=== PATIENT | male | born 1960 | race Caucasian/White ===

== ENCOUNTER 2020-03-09 11:19 | Emergency (ER) | payer OTHER ==
[~2020-03-09] VITALS: Ht 177.8 cm; Wt 77.2 kg
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
[2020-03-09 14:14] VITALS: BP 143/93
== END 2020-03-09 14:21 | disposition home or self-care (01) ==
LOC: EDUNIT# 11:19 → ER 11:20
DX: M54.9 Dorsalgia, unspecified (principal); M54.2 Cervicalgia
CPT/HCPCS: 71045; 72125; 72128